=== PATIENT | female | born 1975 | race African-American/Black ===

== ENCOUNTER 2017-10-20 11:45 | Emergency (ER) | payer SELFPAY, OTHER | END 2017-10-20 12:33 | disposition home or self-care (01) | LOC: ER 11:45 | DX: S50.861A Insect bite (nonvenomous) of right forearm, initial encounter (principal); J45.909 Unspecified asthma, uncomplicated; G43.909 Migraine, unspecified, not intractable, without status migrainosus; Z88.8 Allergy status to other drugs, medicaments and biological substances; W57.XXXA Bitten or stung by nonvenomous insect and other nonvenomous arthropods, initial encounter; Y93.89 Activity, other specified; Y92.89 Other specified places as the place of occurrence of the external cause; Y99.8 Other external cause status | CPT/HCPCS: 99283 ==